=== PATIENT | female | born 1990 | race Caucasian/White ===

== ENCOUNTER 2019-01-30 20:51 | Emergency (ER) | payer BC ==
[~2019-01-30] VITALS: Ht 160 cm; Wt 90.3 kg
[2019-01-30 20:55] VITALS: Ht 160 cm; Wt 90.3 kg
[2019-01-31 00:10] VITALS: BP 139/67
== END 2019-01-31 00:10 | disposition home or self-care (01) ==
LOC: ED 20:51
DX: K04.7 Periapical abscess without sinus (principal)
CPT/HCPCS: J0696; J1100; J1885; J7030; J7060

== ENCOUNTER 2019-02-01 15:40 | Emergency (ER) | payer BC ==
[~2019-02-01] VITALS: Ht 160 cm; Wt 90.7 kg
[2019-02-01 15:45] VITALS: Ht 160 cm; Wt 90.7 kg
[2019-02-01 18:04] VITALS: BP 114/64
== END 2019-02-01 18:18 | disposition home or self-care (01) ==
LOC: ED 15:40
DX: K04.7 Periapical abscess without sinus (principal)
CPT/HCPCS: J0696; J1100; J1885; J3490; J7060